=== PATIENT | male | born 1960 | race African-American/Black ===

== ENCOUNTER → 2020-08-02 | Outpatient (CLI) | payer OTHER | LOC: SJCVC 13:33 | PROVIDERS: ATTEND Internal Medicine | DX: R94.31 Abnormal electrocardiogram [ECG] [EKG] (principal); I25.10 Atherosclerotic heart disease of native coronary artery without angina pectoris; E11.9 Type 2 diabetes mellitus without complications; I10 Essential (primary) hypertension; I25.2 Old myocardial infarction; F17.200 Nicotine dependence, unspecified, uncomplicated; Z79.82 Long term (current) use of aspirin; Z79.899 Other long term (current) drug therapy ==

== ENCOUNTER → 2020-08-04 | Outpatient (CLI) | payer OTHER | LOC: SJCVCIMAG 08-03 13:27 | PROVIDERS: ATTEND Internal Medicine | DX: I25.10 Atherosclerotic heart disease of native coronary artery without angina pectoris (principal); I11.9 Hypertensive heart disease without heart failure; R94.31 Abnormal electrocardiogram [ECG] [EKG]; I25.2 Old myocardial infarction; F17.200 Nicotine dependence, unspecified, uncomplicated; Z95.5 Presence of coronary angioplasty implant and graft; Z79.899 Other long term (current) drug therapy ==

== ENCOUNTER → 2020-08-13 | Outpatient (CLI) | payer OTHER | LOC: SJCVCIMAG 10:06 | PROVIDERS: ATTEND Internal Medicine | DX: I49.3 Ventricular premature depolarization (principal); I25.10 Atherosclerotic heart disease of native coronary artery without angina pectoris; E11.9 Type 2 diabetes mellitus without complications; I10 Essential (primary) hypertension; I25.2 Old myocardial infarction; Z91.89 Other specified personal risk factors, not elsewhere classified; Z79.82 Long term (current) use of aspirin; Z79.84 Long term (current) use of oral hypoglycemic drugs; Z79.899 Other long term (current) drug therapy ==

== ENCOUNTER 2021-03-03 14:16 | Emergency (ER) | payer OTHER ==
[~2021-03-03] VITALS: Ht 175.3 cm; Wt 95.3 kg
[2021-03-03 14:47] LABS: ABSOLUTE NEUTROPHILS 6.3 thou/uL (1.4-8.2); BASOPHILS 0.7 % (0.0-2.0); EOSINOPHILS 2.2 % (0.0-3.0); HEMATOCRIT 46.6 % (42.0-52.0); HEMOGLOBIN 15.7 gm/dL (14.0-18.0); LYMPHOCYTES 20.2 % (24.0-44.0); MCH 28.2 pg (26.0-34.0); MCHC 33.6 g/dL (28.0-37.0); MCV 83.9 fL (80.0-100.0); MONOCYTES 6.6 % (1.0-8.0); PLATELET COUNT 198 thou/uL (150-400); POLYS 70.3 % (36.0-66.0); RBC 5.55 mil/uL (4.50-6.00); RDW 15.4 % (10.5-14.5); WBC 8.9 thou/uL (4.0-11.0)
[2021-03-03 14:53] LABS: ANION GAP 6 mmol/L (7-16); BUN 13 mg/dL (7-18); CALCIUM 9.1 mg/dL (8.5-10.1); CHLORIDE 100 mmol/L (98-107); CO2 32 mmol/L (21-32); CREATININE 1.3 mg/dL (0.7-1.3); GLUCOSE 146 mg/dL (74-106); SODIUM 138 mmol/L (136-145)
[2021-03-03 14:59] LABS: APTT 26.5 Seconds (24.5-32.8); INR 0.94; PROTIME 10.3 Seconds (10.5-12.1)
[2021-03-03 15:03] LABS: ALBUMIN 3.8 g/dL (3.4-5.0); SGOT 28 U/L (15-37); SGPT 35 U/L (16-63); TOTAL BILIRUBIN 0.4 mg/dL (0.2-1.0); TOTAL PROTEIN 7.9 g/dL (6.4-8.2); TROPONIN-I <0.06 ng/mL (<0.06)
--- NOTE | 2021-03-03 15:12 | EKG ---
[address] [place] [address] ELECTROCARDIOGRAM REPORT Name: EKTA MENDEZ [id number] Admission: 03/03/21 Attend Phys: Discharge: Date of : 64 Report #: [id number] [facility] ED Test Date: 2021-03-03 Test Time: 14:38:07 Pat Name: EKTA MENDEZ Department: Room: Gender: M Poultry Hanger: ANGEL : 1960 Requested By: Galo Keene Order Number: [id number] MD: Gabe Ferrer Measurements Intervals [place] Rate: 82 P: 29 MI: 206 QRS: -37 QRSD: 114 T: 43 QT: 410 QTc: 479 Interpretive Statements Sinus rhythm Borderline prolonged MI interval Probable left atrial enlargement Left ventricular hypertrophy J Point elevation anterolateral leads Borderline prolonged QT interval Compared to ECG 03/03/2021 14:21:58 ST (T wave) deviation now present Myocardial infarct finding no longer present Electronically Signed On 03-03-2021 15:12:44 CDT by Gabe Ferrer [email or web address] <ELECTRONICALLY SIGNED> By: Gabe Ferrer MD, [facility] 03/03/21 1512 1438 1438 Gabe Ferrer MD, [facility] /EPI
--- NOTE | 2021-03-03 15:12 | EKG ---
[place] [address] [facility] [place] [address] ELECTROCARDIOGRAM REPORT Name: EKTA MENDEZ [facility] [id number] Admission: 03/03/21 Attend Phys: Discharge: Date of : 64 Report #: [id number] [facility] ED Test Date: 2021-03-03 Test Time: 14:21:58 Pat Name: EKTA MENDEZ Department: Room: Gender: M Digital Sales Executive: ASHLY : 1960 Requested By: Galo Keene Order Number: [id number] MD: Gabe Ferrer Measurements Intervals [place] Rate: 86 P: 5 OR: 194 QRS: -55 QRSD: 111 T: 56 QT: 408 QTc: 488 Interpretive Statements NSR Probable left atrial enlargement LAD, consider left anterior fascicular block Left ventricular hypertrophy No previous ECG available for comparison Electronically Signed On 03-03-2021 15:12:18 CDT by Gabe Ferrer [email or web address] <ELECTRONICALLY SIGNED> By: Gabe Ferrer MD, [facility] 03/03/21 1512 1421 1421 Gabe Ferrer MD, [facility] /EPI
[2021-03-03 19:16] VITALS: BP 134/101
--- NOTE | 2021-03-06 09:22 | EKG ---
[place] [address] [facility] [place] [employer] [place] [address] ELECTROCARDIOGRAM REPORT Name: EKTA MENDEZ [id number] Admission: 03/03/21 Attend Phys: Discharge: 03/03/21 Date of : 64 Report #: [id number] [facility] ED Test Date: 2021-03-05 Test Time: 13:49:33 Pat Name: EKTA MENDEZ Department: Room: Gender: M Maintenance Mechanic: : 1960 Requested By: Galo Keene Order Number: [id number] MD: Gabe Ferrer Measurements Intervals [place] Rate: 98 P: 58 VT: 174 QRS: -9 QRSD: 84 T: 22 QT: 394 QTc: 504 Interpretive Statements Sinus rhythm Prolonged QT interval Compared to ECG 03/03/2021 14:38:07 Left ventricular hypertrophy no longer present ST (T wave) deviation no longer present Electronically Signed On 03-06-2021 9:22:18 CDT by Gabe Ferrer [email or web address] <ELECTRONICALLY SIGNED> By: Gabe Ferrer MD, [facility] 03/06/21 0922 1349 Gabe Ferrer MD, FACC /EPI
== END 2021-03-03 19:28 | disposition home or self-care (01) ==
LOC: ER 14:16
PROVIDERS: Student in an Organized Health Care Education/Training Program
DX: R07.89 Other chest pain (principal); Z20.822 Contact with and (suspected) exposure to COVID-19

== ENCOUNTER → 2021-06-06 | Outpatient (CLI) | payer OTHER | LOC: SJCVCIMAG 07:25 | PROVIDERS: ATTEND Internal Medicine | DX: I44.0 Atrioventricular block, first degree (principal); R07.2 Precordial pain; I25.10 Atherosclerotic heart disease of native coronary artery without angina pectoris; E11.9 Type 2 diabetes mellitus without complications; I10 Essential (primary) hypertension; B20 Human immunodeficiency virus [HIV] disease; F17.210 Nicotine dependence, cigarettes, uncomplicated; Z79.82 Long term (current) use of aspirin; Z79.899 Other long term (current) drug therapy ==

== ENCOUNTER 2021-06-22 22:46 | Emergency (ER) | payer OTHER ==
[~2021-06-22] VITALS: Ht 175.3 cm; Wt 99.3 kg
[2021-06-22 23:47] LABS: ABSOLUTE NEUTROPHILS 7.5 thou/uL (1.4-8.2); BASOPHILS 0.5 % (0.0-2.0); EOSINOPHILS 2.1 % (0.0-3.0); HEMATOCRIT 44.6 % (42.0-52.0); HEMOGLOBIN 14.7 gm/dL (14.0-18.0); LYMPHOCYTES 17.4 % (24.0-44.0); MCH 27.1 pg (26.0-34.0); MCHC 32.9 g/dL (28.0-37.0); MCV 82.4 fL (80.0-100.0); MONOCYTES 6.1 % (1.0-8.0); PLATELET COUNT 208 thou/uL (150-400); POLYS 73.9 % (36.0-66.0); RBC 5.41 mil/uL (4.50-6.00); RDW 14.4 % (10.5-14.5); WBC 10.1 thou/uL (4.0-11.0)
[2021-06-22 23:51] LABS: CALCIUM 8.9 mg/dL (8.5-10.1); CREATININE 1.3 mg/dL (0.7-1.3); POTASSIUM 3.3 mmol/L (3.5-5.1)
[2021-06-23] MEDS ORDERED: LEVAQUIN 500 M500 MG PO (01:23)
[2021-06-23] MEDS ORDERED: METRONIDAZOLE500 M4 PO (01:23)
[2021-06-23] MEDS ORDERED: NAPROSYN500 MG PO (01:23)
[2021-06-23 02:15] VITALS: BP 115/79
--- NOTE | 2021-06-24 07:06 | EKG ---
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 : 1960 Requested By: Regis Kruse Order Number: [id number] MD: Gabe Ferrer Measurements Intervals [place] Rate: 81 P: 21 VA: 203 QRS: -41 QRSD: 111 T: 24 QT: 396 QTc: 460 Interpretive Statements Sinus rhythm Abnormal R-wave progression, late transition ST elevation, consider anterolateral injury Compared to ECG 03/05/2021 13:49:33 Prolonged QT interval no longer present Electronically Signed On 06-24-2021 7:05:53 GALLEY STRIPPER by Gabe Ferrer [email or web address] <ELECTRONICALLY SIGNED> By: Gabe Ferrer MD, [facility] 06/24/21704 52 52 Gabe Ferrer MD, FACC /EPI
== END 2021-06-23 01:55 | disposition home or self-care (01) ==
LOC: ER 22:46
PROVIDERS: Emergency Medicine
DX: K57.92 Diverticulitis of intestine, part unspecified, without perforation or abscess without bleeding (principal); I25.2 Old myocardial infarction; Z21 Asymptomatic human immunodeficiency virus [HIV] infection status; Z86.16 Personal history of COVID-19

== ENCOUNTER → 2021-07-14 | Outpatient (CLI) | payer OTHER ==
[~2021-07-14] MED LIST: LEVAQUIN 500 M500 MG PO; METRONIDAZOLE500 M4 PO; NAPROSYN500 MG PO
== END ==
LOC: SJCVC 09:41
PROVIDERS: ATTEND Internal Medicine
DX: I10 Essential (primary) hypertension (principal); E78.00 Pure hypercholesterolemia, unspecified; E11.9 Type 2 diabetes mellitus without complications; I25.10 Atherosclerotic heart disease of native coronary artery without angina pectoris; Z95.828 Presence of other vascular implants and grafts; F17.200 Nicotine dependence, unspecified, uncomplicated; Z82.49 Family history of ischemic heart disease and other diseases of the circulatory system; Z79.82 Long term (current) use of aspirin; Z79.899 Other long term (current) drug therapy

== ENCOUNTER 2021-08-21 09:14 | Emergency (ER) | payer OTHER ==
[~2021-08-21] VITALS: Ht 175.3 cm; Wt 95.3 kg
[2021-08-21 09:16] VITALS: BP 161/102
[2021-08-21] MEDS ORDERED: CLARITHROMYCIN500 MG PO (09:27)
[2021-08-21] MEDS ORDERED: METOPROLOL SUCC25 M1 PO (09:28)
[2021-08-21] MEDS ORDERED: AMLODIPINE BESY10 MG PO (09:28)
[2021-08-21] MEDS ORDERED: PROTONIX40 M2 PO (09:28)
[2021-08-21] MEDS ORDERED: AMOXICILLIN 50500 MG PO (09:29)
[2021-08-21] MEDS ORDERED: TAMSULOSIN HCL0.4 MG PO (09:29)
[2021-08-21 09:51] LABS: URINE BILIRUBIN NEGATIVE (Negative); URINE BLOOD NEGATIVE (Negative); URINE CLARITY CLEAR; URINE COLOR YELLOW; URINE GLUCOSE-RANDOM* NEGATIVE (Negative); URINE KETONES NEGATIVE (Negative); URINE LEUKOCYTES-REFLEX NEGATIVE (Negative); URINE NITRITE-REFLEX NEGATIVE (Negative); URINE PROTEIN (DIPSTICK) NEGATIVE (Negative); URINE SPECIFIC GRAVITY 1.015 (1.005-1.035); URINE UROBILINOGEN 0.2 E.U./dl (0.2-1.0)
[2021-08-21] MEDS ORDERED: PYRIDIUM200 MG PO (10:09)
== END 2021-08-21 10:48 | disposition home or self-care (01) ==
LOC: ER 09:14
PROVIDERS: Emergency Medicine
DX: N40.0 Benign prostatic hyperplasia without lower urinary tract symptoms (principal); R30.0 Dysuria; I25.2 Old myocardial infarction; Z21 Asymptomatic human immunodeficiency virus [HIV] infection status; Z79.891 Long term (current) use of opiate analgesic; Z79.899 Other long term (current) drug therapy